=== PATIENT | male | born 1965 | race Caucasian/White ===

== ENCOUNTER 2024-02-09 10:38 | Outpatient (RCR) | payer OTHER, SELFPAY ==
--- NOTE | 2024-02-10 06:35 | CTCFLWUP_ITS ---
Patient: MALI JARQUIN : 1965 Page 2 of 2 FOLLOW UP NOTE DATE OF SERVICE: 02/09/2024 NAME: MALI JARQUIN ACCOUNT: [id number] : 1965 AGE: 57 DIAGNOSIS: Stage Ia grade 3 follicular lymphoma (05/10/2015). REASON FOR TODAY?S VISIT: This is office follow-up visit. Mr. Jarquin is here at [facility] cancer center. 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 Denies any fevers or night sweats. Denies any weight loss or loss of appetite. Patient is com plaining of swelling in his neck. Patient also have a swelling in his left axilla and is worried for recurrence of cancer. HISTORY OF PRESENT ILLNESS: Mali Welch is a 57-year-old male who was initially diagnos ed with the follicular grade IIIa lymphoma of the right side of the neck on 05/10/2015. 06/10/2015?07/23/2015: Patient received 3 cycles of R-CHOP chemotherapy. 08/20/2015?09/04/2015: Patient had 2400 cGy radiation to the right neck. 01/30/2016 11/04/2017: Patient had 8 doses of maintenance Rituxan. 01/27/2018: Patient had CT scan of the neck chest abdomen and pelvis with IV contrast which did not sh ow any evidence of metastatic disease. 01/28/2018: Patient had PET CT scan which was a negative study. 07/04/2019: CT scan of the neck, chest, abdomen and pelvis with IV contrast is negative for any lympha denopathy. 07/05/2021: CT scan of the neck, CAP- negative for lymphadenopathy. PAST MEDICAL HISTORY: PAST SURGICAL HISTORY: MEDICATIONS: 1. No medications reported by patient -?Pal[facility]ra Meds? Last Reconciled by Sabi Oneil MD on 03/11/2022 ALLERGIES: No Known Drug Allergies REVIEW OF SYSTEMS:?Clone ROS? Neurological: No headache, seizures or blurring of vision. Gastrointestinal: No nausea, vomiting, diarrhea or constipation. Cardiovascular: No palpitations or angina pains. Respiratory: No cough, chest pain or shortness of breath. PHYSICAL EXAMINATION:?ClonePE? VITAL SIGNS: Temperature?98.6, B/P?124/83, Oxygen?Saturation?99% Weight?216?lbs PAIN: 0 - No pain Palpable lymph node in the neck on the right side supraclavicular area and in the carotid about 1 cm freely mobile nontender Other lymph node palpable in left axilla about 2 cm palpable freely mobile. LABORATORY DATA: Date Time ASSESSMENT and plan: #1History of stage Ia grade 3 follicular lymphoma of the neck, status post 3 cycles of R CHOP chemoth erapy followed by radiation therapy. Patient have palpable lymphadenopathy Will get PET -CT scan to evaluate for recurrence and if needed will order biopsy LDH uric acid and labs ordered RTC with the lab results as well as imaging . Electronically signed by Dr. Correa electronically Signed by: {Object.Sanct_ID*[email or web address]@M}, {Object.Sanct_ID*PnP.Suffix@U} D: {Object.Sanct_Date} T: {Object.Sanct_Time} CC: Maksim?Rodolfo,?, Mohit?Pebbles? PCP: Wei Zhang Referring: Jefe Chappell This document was completed utilizing speech recognition software. Grammatical errors, random word in sertions, pronoun errors, and incomplete sentences are an occasional consequence of this system due t o software limitations, ambient noise, and hardware issues. Any formal questions or concerns about th e content, text or information contained within the body of this dictation should be directly address ed to the provider for clarification.
== END 2024-02-19 23:59 | disposition home or self-care (01) ==
LOC: SCTC 10:38
PROVIDERS: PCP Internal Medicine; Referring Provider Internal Medicine Hematology & Oncology; Visit Provider Nurse Practitioner Family
DX: Z08 Encounter for follow-up examination after completed treatment for malignant neoplasm (principal); Z85.72 Personal history of non-Hodgkin lymphomas; Z92.21 Personal history of antineoplastic chemotherapy; Z92.3 Personal history of irradiation; R59.0 Localized enlarged lymph nodes
CPT/HCPCS: 99212; G0463

== ENCOUNTER → 2024-03-09 | Outpatient (CLI) | payer OTHER, SELFPAY ==
--- NOTE | 2024-03-09 12:30 | XR_ITS ---
EXAMINATION: PET/CT FUSION SKULL TO THIGH EXAM DATE AND TIME: March 09, 2024 1306 hours Comparison January 28, 2018 INDICATIONS: Diagnosis head and neck cancer, restaging CTDI:vol (mGy) 8.38 DLP: (mGycm) 974 PROCEDURE: 15.36 mCi FDG was administered intravenously To allow for distribution and uptake of radiotracer, the patient was allowed to rest quietly in a shielded room. Imaging was performed on an integrated 16-slice PET/CT scanner, with scanning from the skull base to the mid thigh. Serum blood glucose at the time of the injection was measured 99 mg/dL. CT scanning was performed without oral or intravenous contrast material. FINDINGS: Head and Neck: Weakly hypermetabolic left thyroid lobe Chest: There is no meek hypermetabolism in the chest. There are no pulmonary nodules. Abdomen and Pelvis: There is no meek hypermetabolism in retroperitoneal or pelvic chains. The spleen is normal in size and FDG avidity. Musculoskeletal: Marrow uptake is within normal range. IMPRESSION: Negative for hypermetabolic lymphadenopathy
== END | disposition home or self-care (01) ==
LOC: CDIM 12:19
PROVIDERS: PCP Internal Medicine; Referring Provider Internal Medicine Hematology & Oncology; Visit Provider Internal Medicine Hematology & Oncology
DX: C82.91 Follicular lymphoma, unspecified, lymph nodes of head, face, and neck (principal)
CPT/HCPCS: 78815; A9552

== ENCOUNTER 2024-03-21 11:36 | Outpatient (RCR) | payer OTHER, SELFPAY ==
--- NOTE | 2024-03-27 14:27 | CTCFLWUP_ITS ---
Patient: MALI JARQUIN : 1965 Page 2 of 3 FOLLOW UP NOTE DATE OF SERVICE: 03/21/2024 NAME: MALI JARQUIN ACCOUNT: [id number] : 1965 AGE: 59 INTERVAL HISTORY: Patient is doing well and have no complaints. ONCOLOGY HISTORY: DIAGNOSIS: Follicular lymphoma, unspecified, lymph nodes of head, face, and neck [ICD10] C82.91 DATE OF DIAGNOSIS: 05/10/2015 STAGE/TNM: Follicular grade 3A lymphoma TREATMENT HISTORY: Care?Plan Start?Date Cycle Day Intent CHOP?+?Rituximab?375?mg/m*2?-?Relapsed,?Ref 06/10/201504 11 Curative?(primary) Rituximab?375mg/m*2?maint 01/30/2016 Curative?(primary) HISTORY OF PRESENT ILLNESS: Mali Welch is a 59-year-old male who was initially diagnosed with the follicular grade IIIa lymphoma of the right side of the neck on 05/10/2015. 06/10/2015?07/23/2015: Patient received 3 cycles of R-CHOP chemotherapy. 08/20/2015?09/04/2015: Patient had 2400 cGy radiation to the right neck. 01/30/2016 11/04/2017: Patient had 8 doses of maintenance Rituxan. 01/27/2018: Patient had CT scan of the neck chest abdomen and pelvis with IV contrast which did not sh ow any evidence of metastatic disease. 01/28/2018: Patient had PET CT scan which was a negative study. 07/04/2019: CT scan of the neck, chest, abdomen and pelvis with IV contrast is negative for any lympha denopathy. 07/05/2021: CT scan of the neck, CAP- negative for lymphadenopathy. OTHER MEDICAL HISTORY/CONDITIONS: FAMILY HISTORY: SOCIAL HISTORY: MEDICATIONS: 1. One A Day Men Complete - 240-25-300 mcg 1 tab Daily 2. Vitamin B-12 - 1,000 mcg 1 tab Daily 3. Vitamin D3 - 400 unit 1 Capsule Daily Medications Last Reconciled by Reba Leach MA on 03/21/2024 ALLERGIES: No Known Drug Allergies REVIEW OF SYSTEMS: A complete 14-point review of systems was performed and is negative except as noted in interval histo ry. PHYSICAL EXAMINATION: VITAL SIGNS: PAIN: 0 - No pain ECOG Performance Status: 0 - Asymptomatic and fully active No obvious swelling on the face neck. Patient able to move all extremities. 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 No obvious shortness of breath or rash LABORATORY DATA: I have personally reviewed and interpreted each of the patient?s relevant lab tests, abnormal finding s are below: Date 12/22/23 ??GLUCOSE,RANDOM?(mg/dL) 92 ??BLOOD?UREA?NITROGEN?(mg/dL) 18 ??CREATININE?(mg/dL) 1.00 ??SODIUM?(mmol/L) 142 ??POTASSIUM?(mmol/L) 4.4 ??CHLORIDE?(mmol/L) 110?H ??CrCl?(CandG)?(ml/min) 96.91 ??AST/SGOT?(Unit/L) 16 ??ALT/SGPT?(Unit/L) 18 ??ALKALINE?PHOSPHATASE?(Unit/L) 93 ??BILIRUBIN,?TOTAL?(mg/dL) 1.5?H ??PROTEIN?TOTAL?(gm/dl) 6.4 ??ALBUMIN,?SERUM?(gm/dl) 4.5 ??GLOBULIN?(gm/dl) 1.9?L ??ALBUMIN/GLOBULIN?RATIO 2.4?H ??CALCIUM,?SERUM?(mg/dL) 9.5 ??CALCIUM?SERUM?(CORRECTED)?(mg/dL) 9.5 ASSESSMENT/PLAN: History of follicular lymphoma PET CT scan reviewed 03/09/[address] scan do not reveal any hypermetabolic lymphadenopathy Clinically asymptomatic No intervention needed Continue active surveillance PET CT scan RETURN TO CLINIC: RTC 1 year BILLING AND COMPLIANCE: I reviewed external records from providers outside my specialty as summarized above. I spent a total of 50 minutes on this patient?s care on the day of their visit excluding time spent related to any bi lled procedures. This time includes time spent with the patient as well as time spent documenting in the medical record, reviewing patients records and tests, obtaining history, placing orders, communi cating with other healthcare professionals, counseling the patient, family or caregiver, and/or care coordination for the diagnoses above. Electronically Signed by: Jass Correa MD T: 2:24 PM CC: Maksim?Rodolfo,?, Mohit?Pebbles? PCP: Wei Zhang Referring: Wei Zhang This document was completed utilizing speech recognition software. Grammatical errors, random word in sertions, pronoun errors, and incomplete sentences are an occasional consequence of this system due t o software limitations, ambient noise, and hardware issues. Any formal questions or concerns about th e content, text or information contained within the body of this dictation should be directly address ed to the provider for clarification.
== END 2024-03-21 23:59 | disposition home or self-care (01) ==
LOC: SCTC 11:36
PROVIDERS: PCP Internal Medicine; Referring Provider Internal Medicine; Visit Provider Internal Medicine Hematology & Oncology
DX: Z08 Encounter for follow-up examination after completed treatment for malignant neoplasm (principal); Z85.72 Personal history of non-Hodgkin lymphomas; Z92.3 Personal history of irradiation; Z92.21 Personal history of antineoplastic chemotherapy
CPT/HCPCS: 99212; G0463

== ENCOUNTER 2024-11-16 08:18 | Outpatient (AMB) | payer OTHER, SELFPAY ==
[2024-11-16 08:30] VITALS: BP 136/76; PULSE 95; RESP 18; TEMP 36.1; O2SAT 95; BMI 29.3
--- NOTE | 2024-11-16 08:30 | ORTHONT_ITS ---
Vital signs 11/16/24 08:30 Height 1.83 m Height Method Measured Weight 98.203 kg Weight Measurement Method Standing Scale BMI 29.3 BP 136/76 H Blood Pressure Source Automatic Cuff Blood Pressure Location Left Upper Arm Position Sitting Respiration 18 Pulse 95 Pulse Source Monitor Temp 97.0 F Temp Source Temporal Artery Scan Pulse Oximetry (%) 95 Oxygen Delivery Method Room Air Med/Allergies Allergies & Medications Allergies No Known Allergies Allergy (Verified 11/16/24 08:32) Medication Reconciliation tamsulosin 0.4 mg capsule 0.4 mg PO QHS 11/07/20 [History Confirmed 11/16/24] Exam Exam Breathing is nonlabored. Patient has a normal mood and affect. Bilateral extremities were evaluated and demonstrates sensation intact to light touch. Palpable pedal pulses are present. No significant edema is present. Bilateral hips were examined. The patient has no pain with log roll of the hips. Internal rotation to 30 degrees and external rotation to 30 degrees is painless. Negative FADIR. Left knee was examined today. The left knee is in valgus alignment. Range of motion from 0-120 degrees. Knee is stable to varus and valgus as well as AP translation with <5mm. Patient has a negative McMurrays. There is no pain with patellofemoral compression and no crepitus noted. The knee is tender to palpation laterally The right knee was also examined. The right knee is in valgus alignment. Range of motion from 0-115 degrees. Knee is stable to varus and valgus as well as AP translation with <5mm. Patient has a negative McMurrays. There is no pain with patellofemoral compression and no crepitus noted. The knee is tender to palpation medially and laterally. X-rays of the bilateral knees demonstrate significant joint space narrowing laterally and complete obliteration of the lateral joint space. The tibial ACL screw is actually in the joint. There are a couple screw threads that are above the tibial plateau surface. On the left knee there is a tibial plate with depression of the lateral tibial plateau. His arthritis of significant severity of both knees Assessment and Plan Problem List (1) Degenerative arthritis of knee, bilateral: Status: Acute Plan: Patient is a pleasant 59-year-old male with bilateral knee pain with the right being greater than the left. We discussed different treatment options. For the right knee, we discussed total knee replacement. He actually has threads of the screw in the joint. We discussed total knee replacement as a reasonable option given that he has failed conservative treatment with injections anti-inflammatories and has hardware in the joint. This is actually removed approximately compared to the original x-ray in 2015 based on serial radiographs. This would be very difficult to remove as the head of the screw is buried in the bone The nature and purpose of the total knee replacement, alternative method(s) of treatment, the material risks involved, and the possibility of complications were fully explained to the patient. The patient does NOT have any of the following contraindications to TKA: - Active infection of the knee joint, OR - Active systemic bacteremia, OR - Active skin infection or open wound at surgical site, OR - Neuropathic arthritis, OR - Severe, rapidly progressive neurological disease, OR - Severe medical condition that makes risks of surgery outweigh the potential be nefit The patient was told the most common risks and complications associated with a total knee replacement include, but are not limited to: blood clots in the leg, fatal pulmonary embolism, dislocation of the prosthesis, intraoperative and postoperative fractures of the femur or tibia, infection, failure of the prosthesis or grafting materials, complications from anesthesia, reactions to blood transfusions, postoperative leg length inequality, instability of the knee replacement, nerve damage or injury, vascular injury, delayed wound healing, infection, other injury or even . In addition, there are risks associated with anesthesia given during this operation. Also, the patient was told that after undergoing a total knee replacement there may still be persistent pain or disability. The patient was informed that the success of this operation in part depends upon the mechanical devices which are going to be implanted and that these devices can fail or malfunction, and may need to be repaired or replaced and there are no guarantees as to the longevity of this device or its parts and that it or its parts could fail prematurely. The patient was also notified that during the course of surgery, there may be a need to use bone graft from donors, and that any bone graft used will be carefully screened for communicable diseases, including AIDS, hepatitis, Myles-Creutzfeldt, or other diseases, but despite the screening procedures, there is a small chance that they could contract one of these diseases. Finally, the patient was asked to follow completely and fully with all advice and recommended treatments, and that recovery and ultimate outcome are affected by their compliance with recommended treatment. We discussed the risks, benefits and treatment alternatives, and the patient is interested in proceeding with surgery. We will try to set this up as expeditiously as possible. 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) PA Intake Visit Data Collection New Patient or Established: New Patient (never been to [facility]) Reason for Visit:: BILATERAL KNEE PAIN 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 Required: No PCP or OBGYN visit in last 3 months: Yes Hx Now: No Do You Feel Safe at Home: Yes Authorities Contacted: N/A Questionairres Past Medical History Past Medical History Have you ever been diagnosed with any of the following: Neurological Problems Seizures: No Cardiology Problems Congestive Heart Failure: No Respiratory Problems Chronic Obstructive Pulmonary Disease (COPD): No Genital/Urinary Problems Renal Disease: No Endocrine Problems Diabetes Mellitus Type 1: No Diabetes Mellitus Type 2: No Other Problems Blood Transfusions: No Blood Transfusion Reaction: No Anesthesia Reactions: No Cancer: Yes (lymphoma) Subjective Visit Visit for: new patient and knee Immunization / Flu Flu Vaccine in the Last 12 Months: Yes Flu Vaccine Exclusion Criteria: Already Received History of Present Illness Chief complaint: BILATERAL KNEE PAIN Date of injury / onset of symptoms: 30 YEARS RIGHT KNEE/3 YEARS LEFT KNEE Gabe is a pleasant 59-year-old male with right greater than left knee pain. This been ongoing for over 30 years. He has had 4 arthroscopic surgeries as well as ACL repairs in the past. He was told he has no ACL. On the left knee he had a tibial plateau fracture 3 years ago and underwent ORIF. He has had multiple injections in the right knee in the past including over 3. He has tried NSAIDs in the past and they do not help with his pain very much. He is very active. 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
--- NOTE | 2024-11-16 08:46 | XR_ITS ---
Examination: Bilateral knees 2 views Right lateral knee left lateral knee 2 views Bilateral axial knees single view TECHNIQUE: Bilateral AP knees standing single view, bilateral PA knees standing single view flexion Standing right lateral knee left lateral knee 2 views Bilateral axial knees single view INDICATIONS: Chronic knee pain 30 years FINDINGS: Moderate osteopenia Advanced narrowing lateral joint space right knee Significant osteoarthritis medial and patellofemoral joints right knee Prior anterior cruciate repair Healed fracture proximal left tibia Mild to moderate left knee tricompartment osteoarthritis IMPRESSION: Advanced right knee tricompartment osteoarthritis including severe narrowing lateral joint space right knee Mild to moderate osteoarthritis, tricompartmental, left knee
== END 2024-11-16 09:19 | disposition home or self-care (01) ==
PROVIDERS: PCP Internal Medicine; Referring Provider Internal Medicine; Supervising Provider Orthopaedic Surgery Adult Reconstructive Orthopaedic Surgery; Visit Provider Orthopaedic Surgery Adult Reconstructive Orthopaedic Surgery
DX: M17.0 Bilateral primary osteoarthritis of knee (principal); M25.562 Pain in left knee; M25.561 Pain in right knee
CPT/HCPCS: 73564; 99204; G0463

== ENCOUNTER 2025-02-12 09:30 | Outpatient (RCR) | payer OTHER, SELFPAY ==
--- NOTE | 2025-01-29 10:34 | PTNOTE_ITS ---
PT OP Initial Eval Patient Information Outpatient Physical Therapy Treatment Date: 01/29/25 Visit Reasons: RIGHT SHOULDER SURGERY Medical Diagnosis: S46.011A Treatment Dx #1: Dec ROM R shoulder Treatment Dx #2: R shoulder pain Start of Care: 01/29/25 Date of Onset: 12/14/24 DOS Smoking Status Smoking Status: Never smoker Initial Assessment Subjective: Pt is 59 yr old male s/p R RCR supraspinatus, biceps tenodesis presents without sling. Pt reports he's doing HEP and working without significant issues. PMH: cancer, multiple R knee surgeries Pt goal: improved ROM, strength and function of R shoulder Objective: R shoulder PROM: FF: 110 deg Abd: 90 deg Erot: 85 deg AROM: NT Strength: NT R elbow ArOM: full flexion and extension Assessment: Pt presentation consistent with post op R RCR with decreased ROM, strength and function with reaching. Pt has low tissue irritability with PROM today and requires skilled therapy in order to meet goals and has good rehab potential. Eval followed by HEP printout. Short Term and Assisted Goals 1. Ind with HEP 2. Improved PROM of R shoulder to at least 145 deg FF and abduction, ER to 90 deg 3. Improved AROM of R shoulder to at least 145 deg FF and 130 abduction, ER to 80 deg after transitioning to AROM phase of protocol. 4. Pt will reach OH x10 in order to reach tall cabinets.? Treatment Plan Will follow included RCR protocol 1. Manual therapy ? 2. Therex ? 3. Modalities as indicated, moist heat, ice, estim Frequency and Duration: 2x a week for 16 visits plus the evaluation Certification Dates: 01/29/25 to 04/29/25 Procedure Charges OP PT Eval Mod Complex 30 minutes: Yes
--- NOTE | 2025-02-01 09:09 | PT.ODAYNRPT ---
PT Outpatient Daily Note OP Daily Note Outpatient Physical Therapy Treatment Date: 02/01/25 Visit Reasons: RIGHT SHOULDER SURGERY Subjective: Doing HEP with mila and exercise ball with low pain in R shoulder Objective: See f/S for therex MT: PROM into FF, abduction and ER x7' Ice x7' post Rx Assessment: Good PROM of R shoulder with low pain mostly tightness at end-range. Plan: Transition to AROM Length of Time (minutes) of Treatment: 30 Minutes Procedure Charges Therapeutic Exercise 30 minutes: Yes
--- NOTE | 2025-02-05 13:29 | PT.ODAYNRPT ---
PT Outpatient Daily Note OP Daily Note Outpatient Physical Therapy Treatment Date: 02/05/25 Visit Reasons: RIGHT SHOULDER SURGERY Subjective: Doing HEP with mila and exercise ball with low pain in R shoulder Objective: See f/S for therex Assessment: Good PROM and AARO of R shoulder to almost full with low pain mostly tightness at end-range. Pt started transitioning to AROM today with low pain in supine. Updated HEP with AROM therex. Plan: Continue to transition to AROM Length of Time (minutes) of Treatment: 30 Minutes Procedure Charges Therapeutic Exercise 30 minutes: Yes
--- NOTE | 2025-02-09 13:59 | PT.ODAYNRPT ---
PT Outpatient Daily Note OP Daily Note Outpatient Physical Therapy Treatment Date: 02/09/25 Visit Reasons: RIGHT SHOULDER SURGERY Subjective: Pt reports R shoulder is doing well for post op timeline. Pt continues to perform HEP. Objective: Please see flow sheet for ther ex list. Assessment: Interventions completed with good tolerance, pt able to replicate interventions with good technique indicating compliance with HEP. Plan: Continue with poC. Length of Time (minutes) of Treatment: 30 Minutes Procedure Charges Therapeutic Exercise 30 minutes: Yes
--- NOTE | 2025-02-12 13:48 | PT.ODAYNRPT ---
PT Outpatient Daily Note OP Daily Note Outpatient Physical Therapy Treatment Date: 02/12/25 Visit Reasons: RIGHT SHOULDER SURGERY Subjective: Doing HEP with mila and exercise ball with low pain in R shoulder Objective: See f/S for therex Assessment: Good PROM and AAROM of R shoulder to almost full with low pain mostly tightness at end-range. Pt is transitioning to AROM with low pain in supine. Plan: Continue with AROM of R shoulder Length of Time (minutes) of Treatment: 30 Minutes Procedure Charges Therapeutic Exercise 30 minutes: Yes
== END 2025-02-18 23:59 | disposition home or self-care (01) ==
LOC: CPTX 09:30
PROVIDERS: PCP Student in an Organized Health Care Education/Training Program; Referring Provider Student in an Organized Health Care Education/Training Program; Visit Provider Student in an Organized Health Care Education/Training Program
DX: M25.511 Pain in right shoulder (principal); S46.011D Strain of muscle(s) and tendon(s) of the rotator cuff of right shoulder, subsequent encounter; X58.XXXD Exposure to other specified factors, subsequent encounter
CPT/HCPCS: 97110; 97162

== ENCOUNTER 2025-03-12 08:00 | Outpatient (RCR) | payer OTHER, SELFPAY ==
--- NOTE | 2025-02-19 10:05 | PT.ODAYNRPT ---
PT Outpatient Daily Note OP Daily Note Outpatient Physical Therapy Treatment Date: 02/19/25 Visit Reasons: RT SHOULDER SURGERY Subjective: Pt reports low pain in R shoulder and difficulty reaching OH in standing Objective: See f/S for therex MT: PROM into FF, abduction x5' with 10 second holds at end-range Assessment: Good PROM and AAROM of R shoulder to almost full with low pain mostly tightness at end-range. Pt has transitioned to AROM with low pain in supine and weakness in standing. Plan: Continue with AROM of R shoulder Length of Time (minutes) of Treatment: 30 Minutes Procedure Charges Therapeutic Exercise 30 minutes: Yes
--- NOTE | 2025-03-05 17:55 | PT.ODAYNRPT ---
PT Outpatient Daily Note OP Daily Note Outpatient Physical Therapy Treatment Date: 03/05/25 Visit Reasons: RT SHOULDER SURGERY Subjective: Pt reports low pain in R shoulder and improved reaching OH in standing. No pain with stretching the shoulder. Objective: See f/S for therex Assessment: Good PROM and AROM of R shoulder to almost full with low pain mostly tightness at end-range. Pt has transitioned to slight strengthening with with low pain Plan: Continue with AROM and transition to light strengthening of R shoulder Length of Time (minutes) of Treatment: 30 Minutes Procedure Charges Therapeutic Exercise 30 minutes: Yes
--- NOTE | 2025-03-07 18:08 | PT.ODAYNRPT ---
PT Outpatient Daily Note OP Daily Note Outpatient Physical Therapy Treatment Date: 03/07/25 Visit Reasons: RT SHOULDER SURGERY Subjective: Pt reports low pain in R shoulder and improved reaching OH in standing. No pain with stretching the shoulder. He wants to strengthen the R shoulder and learn HEP. Objective: See f/S for therex Assessment: Good PROM and AROM of R shoulder to almost full with low pain mostly tightness at end-range. Pt has transitioned to slight strengthening with with low pain Plan: Continue with AROM and transition to light strengthening of R shoulder Length of Time (minutes) of Treatment: 30 Minutes Procedure Charges Therapeutic Exercise 30 minutes: Yes
--- NOTE | 2025-03-12 10:27 | PT.ODAYNRPT ---
PT Outpatient Daily Note OP Daily Note Outpatient Physical Therapy Treatment Date: 03/12/25 Visit Reasons: RT SHOULDER SURGERY Subjective: Pt reports soreness in the R shoulder increased since last visit attributed to driving far this weekend and leaning on that elbow in the car. Objective: See F/S for therex MHP: x5' R shoulder Assessment: Low pain in R shoulder and soreness with AAROM therex today. We held the resistance therex due to soreness. Plan: Continue per POC Length of Time (minutes) of Treatment: 30 Minutes Procedure Charges Therapeutic Exercise 30 minutes: Yes
== END 2025-03-21 23:59 | disposition home or self-care (01) ==
LOC: CPTX 08:00
PROVIDERS: PCP Student in an Organized Health Care Education/Training Program; Referring Provider Student in an Organized Health Care Education/Training Program; Visit Provider Student in an Organized Health Care Education/Training Program
DX: M25.511 Pain in right shoulder (principal); S46.011D Strain of muscle(s) and tendon(s) of the rotator cuff of right shoulder, subsequent encounter; X58.XXXD Exposure to other specified factors, subsequent encounter
CPT/HCPCS: 97110